=== PATIENT | male | born 1970 | race Caucasian/White ===

== ENCOUNTER 2019-06-16 23:14 | Emergency (ER) | payer SELFPAY ==
[~2019-06-16] VITALS: Ht 170.2 cm; Wt 80.9 kg
[2019-06-16 23:39] LABS: BASOPHILS % (AUTO) 0 % (0-10); EOSINOPHILS # (AUTO) 0.1 10^3/uL (0.0-0.3); EOSINOPHILS % (AUTO) 2 % (0-10); HEMATOCRIT 38 % (40-54); HEMOGLOBIN 12.6 G/DL (13.3-17.7); LYMPHOCYTES # (AUTO) 2.6 X 10^3 (1.0-4.0); LYMPHOCYTES % (AUTO) 38 % (12-44); MEAN CORPUSCULAR HEMOGLOBIN 28 PG (25-34); MEAN CORPUSCULAR HGB CONC 34 G/DL (32-36); MEAN CORPUSCULAR VOLUME 84 FL (80-99); MEAN PLATELET VOLUME 9.5 FL (7.4-10.4); MONOCYTES # (AUTO) 0.5 X 10^3 (0.0-1.0); MONOCYTES % (AUTO) 7 % (0-12); NEUTROPHILS # (AUTO) 3.6 X 10^3 (1.8-7.8); NEUTROPHILS % (AUTO) 52 % (42-75); PLATELET COUNT 209 10^3/uL (130-400); RED CELL DISTRIBUTION WIDTH 13.3 % (10.0-14.5); WHITE BLOOD COUNT 6.9 10^3/uL (4.3-11.0)
[2019-06-16 23:47] LABS: BILIRUBIN,URINE NEGATIVE (NEGATIVE); CLARITY,URINE CLEAR; COLOR,URINE YELLOW; GLUCOSE, URINE (UA) NEGATIVE (NEGATIVE); KETONES,URINE NEGATIVE (NEGATIVE); LEUKOCYTE ESTERASE ,URINE NEGATIVE (NEGATIVE); NITRITE,URINE NEGATIVE (NEGATIVE); PH,URINE 5 (5-9); PROTEIN,URINE 1+ (NEGATIVE)
[2019-06-16 23:51] LABS: ALANINE AMINOTRANSFERASE 13 U/L (0-55); ALBUMIN 3.8 GM/DL (3.2-4.5); ALKALINE PHOSPHATASE 63 U/L (40-136); BILIRUBIN,TOTAL 0.1 MG/DL (0.1-1.0); BUN/CREATININE RATIO 21; CALCIUM 8.5 MG/DL (8.5-10.1); CARBON DIOXIDE 18 MMOL/L (21-32); CHLORIDE 116 MMOL/L (98-107); CREATININE SERUM 0.78 MG/DL (0.60-1.30); GFR ESTIMATED > 60; GLUCOSE 70 MG/DL (70-105); MAGNESIUM 1.9 MG/DL (1.6-2.4); POTASSIUM 3.2 MMOL/L (3.6-5.0); SODIUM 147 MMOL/L (135-145); TOTAL PROTEIN 6.3 GM/DL (6.4-8.2)
[2019-06-16 23:59] LABS: BACTERIA,URINE NEGATIVE /HPF; SQUAMOUS EPITHELIAL CELL,UR 0-2 /HPF
[2019-06-17 00:01] LABS: PROTHROMBIN TIME PATIENT 13.1 SEC (12.2-14.7)
[2019-06-17 00:12] LABS: TSH (THYROID ANALYZER) 0.92 UIU/ML (0.35-4.94)
[2019-06-17 00:13] LABS: AMPHETAMINE SCREEN, URINE NEGATIVE (NEGATIVE); BARBITURATE SCREEN URINE NEGATIVE (NEGATIVE); BENZODIAZEPINES SCREEN URINE NEGATIVE (NEGATIVE); CANNABINOID SCREEN, URINE NEGATIVE (NEGATIVE); COCAINE SCREEN URINE NEGATIVE (NEGATIVE); METHADONE STAT NEGATIVE (NEGATIVE); METHAMPHETAMINE SCREEN URINE S NEGATIVE (NEGATIVE); OPIATE SCREEN URINE NEGATIVE (NEGATIVE); OXYCODONE STAT NEGATIVE (NEGATIVE); PROPOXYPHENE STAT NEGATIVE (NEGATIVE); TRICYCLIC ANTIDEPRESSANTS SCRE NEGATIVE (NEGATIVE)
[2019-06-17] MEDS ORDERED: IOHEXOL 350 MG/ML 100 ML (OMNIPAQUE 350) VIAL IV ONE (00:30)
[2019-06-17] MEDS ORDERED: KCL 10 MEQ TAB (MICRO K) PO ONE (00:30)
[2019-06-17] MEDS ORDERED: NS 100 ML (IVPB) BAG IV ONE (00:30)
--- NOTE | 2019-06-17 00:30 | NUR ---
IV NS BOLUS INITIATED BY [facility] DISPLAY DEPARTMENT MANAGER, COMPLETE (1000ML INTAKE).
[2019-06-17] MEDS ORDERED: HYDR-700 PO (01:25)
--- NOTE | 2019-06-17 01:25 | ED General ---
General Chief Complaint: Psych/Social Disorder Stated Complaint: SOA Nursing Triage Note: Pt to room #3 via [facility] cart from home with c/o anxiety. Engineering Clerk ems accessed 20g IV to lt a/c and initiated ns fluid bolus. Upon arrival pt reports he has been drinking "vodka straight" throughout the day and into this evening. Pt reports between 2100 - 2200 anxiety began. Lung sounds cta bilat. Resp 22. Denies CP or discomfort. Nursing Sepsis Screen: No Definite Risk Allergies and Home Medications Allergies Coded Allergies: morphine (Verified Allergy, Mild, ITCHING, 06/16/19) Past Wglqgxe-Rqpmfn-Aktvos Hx Patient Social History Alcohol Use: Past History Alcohol Beverage of Choice: Vodka Recreational Drug Use: Yes (Meth. heroin, THC) Smoking Status: Former Smoker Type Used: Smokeless Tobacco Recent Foreign Travel: No Contact w/Someone Who Travel: No Recent Infectious Disease Expo: No Past Medical History Abdominal Respiratory: Yes COPD Cardiac: No Neurological: No Genitourinary: No Gastrointestinal: No Musculoskeletal: No Endocrine: No HEENT: No Cancer: No Psychosocial: Yes Anxiety, Depression Integumentary: No Physical Exam Vital Signs Vital Signs - First Documented 06/16/19 23:14 Temp 36.4 Pulse 73 Resp 22 B/P (MAP) 147/100 (116) Pulse Ox 99 O2 Delivery Room Air Capillary Refill : Less Than 3 Seconds Height, Weight, BMI Height: '" Weight: lbs. oz. kg; 27.00 BMI Method: Progress/Results/Core Measures Suspected Sepsis Recent Fever Within 48 Hours: No Infection Criteria Present: None New/Unexplained Altered Menta: No Sepsis Screen: No Definite Risk SIRS Temperature: Pulse: 73 Respiratory Rate: 22 Laboratory Tests 06/16/19 23:29: White Blood Count 6.9 Blood Pressure 147 /100 Mean: 116 Laboratory Tests 06/16/19 23:29: Creatinine 0.78, INR Comment 1.0, Platelet Count 209, Total Bilirubin 0.1 Results/Orders Lab Results Laboratory Tests Test 06/16/19 23:29 06/16/19 23:41 Range/Units White Blood Count 6.9 4.3-11.0 10^3/uL Red Blood Count 4.46 4.35-5.85 10^6/uL Hemoglobin 12.6 L 13.3-17.7 G/DL Hematocrit 38 L 40-54 % Mean Corpuscular Volume 84 80-99 FL Mean Corpuscular Hemoglobin 28 25-34 PG Mean Corpuscular Hemoglobin Concent 34 32-36 G/DL Red Cell Distribution Width 13.3 10.0-14.5 % Platelet Count 209 130-400 10^3/uL Mean Platelet Volume 9.5 7.4-10.4 FL Neutrophils (%) (Auto) 52 42-75 % Lymphocytes (%) (Auto) 38 12-44 % Monocytes (%) (Auto) 7 0-12 % Eosinophils (%) (Auto) 2 0-10 % Basophils (%) (Auto) 0 0-10 % Neutrophils # (Auto) 3.6 1.8-7.8 X 10^3 Lymphocytes # (Auto) 2.6 1.0-4.0 X 10^3 Monocytes # (Auto) 0.5 0.0-1.0 X 10^3 Eosinophils # (Auto) 0.1 0.0-0.3 10^3/uL Basophils # (Auto) 0.0 0.0-0.1 10^3/uL Prothrombin Time 13.1 12.2-14.7 SEC INR Comment 1.0 0.8-1.4 Activated Partial Thromboplast Time 33 24-35 SEC Sodium Level 147 H 135-145 MMOL/L Potassium Level 3.2 L 3.6-5.0 MMOL/L Chloride Level 116 H 98-107 MMOL/L Carbon Dioxide Level 18 L 21-32 MMOL/L Anion Gap 13 5-14 MMOL/L Blood Urea Nitrogen 16 7-18 MG/DL Creatinine 0.78 0.60-1.30 MG/DL Estimat Glomerular Filtration Rate > 60 BUN/Creatinine Ratio 21 Glucose Level 70 70-105 MG/DL Calcium Level 8.5 8.5-10.1 MG/DL Corrected Calcium 8.7 8.5-10.1 MG/DL Magnesium Level 1.9 1.6-2.4 MG/DL Total Bilirubin 0.1 0.1-1.0 MG/DL Aspartate Amino Transf (AST/SGOT) 16 5-34 U/L Alanine Aminotransferase (ALT/SGPT) 13 0-55 U/L Alkaline Phosphatase 63 40-136 U/L Troponin I < 0.028 <0.028 NG/ML B-Type Natriuretic Peptide 15.8 <100.0 PG/ML Total Protein 6.3 L 6.4-8.2 GM/DL Albumin 3.8 3.2-4.5 GM/DL TSH [place] Testing 0.92 0.35-4.94 UIU/ML Serum Alcohol 153 H <10 MG/DL Urine Color YELLOW Urine Clarity CLEAR Urine pH 5 5-9 Urine Specific [place] 1.025 H 1.016-1.022 Urine Protein 1+ H NEGATIVE Urine Glucose (UA) NEGATIVE NEGATIVE Urine Ketones NEGATIVE NEGATIVE Urine Nitrite NEGATIVE NEGATIVE Urine Bilirubin NEGATIVE NEGATIVE Urine Urobilinogen NORMAL NORMAL MG/DL Urine Leukocyte Esterase NEGATIVE NEGATIVE Urine RBC (Auto) NEGATIVE NEGATIVE Urine RBC NONE /HPF Urine WBC NONE /HPF Urine Squamous Epithelial Cells 0-2 /HPF Urine Crystals NONE /LPF Urine Bacteria NEGATIVE /HPF Urine Casts PRESENT /LPF Urine Hyaline Casts 2-5 H /LPF Urine Mucus LARGE H /LPF Urine Culture Indicated NO Urine Opiates Screen NEGATIVE NEGATIVE Urine Oxycodone Screen NEGATIVE NEGATIVE Urine Methadone Screen NEGATIVE NEGATIVE Urine Propoxyphene Screen NEGATIVE NEGATIVE Urine Barbiturates Screen NEGATIVE NEGATIVE Ur Tricyclic Antidepressants Screen NEGATIVE NEGATIVE Urine Phencyclidine Screen NEGATIVE NEGATIVE Urine Amphetamines Screen NEGATIVE NEGATIVE Urine Methamphetamines Screen NEGATIVE NEGATIVE Urine Benzodiazepines Screen NEGATIVE NEGATIVE Urine Cocaine Screen NEGATIVE NEGATIVE Urine Cannabinoids Screen NEGATIVE NEGATIVE My Orders Orders - JUDIT CASTILLO DO Ed Iv/Invasive Line Start (06/16/19 23:31) Ekg Tracing (06/16/19 23:31) Monitor-Rhythm Ecg Trace Only (06/16/19 23:31) Chest Pa/Lat (2 View) (06/16/19 23:31) Alcohol (06/16/19 23:31) BNP (06/16/19 23:31) Cbc With Automated Diff (06/16/19 23:31) Comprehensive Metabolic Panel (06/16/19 23:31) Drug Screen Stat (Urine) (06/16/19 23:31) Magnesium (06/16/19 23:31) Protime With Inr (06/16/19 23:) Partial Thromboplastin Time (06/16/19 23:31) Thyroid Analyzer (06/16/19 23:31) Ua Culture If Indicated (06/16/19 23:31) Troponin I (06/16/19 23:31) Ct Angio Chest W (06/17/19 00:16) Potassium Chloride (Tablet) (Klor Con Ta (06/17/19 00:30) Iohexol Injection (Omnipaque 350 Mg/Ml 1 (06/17/19 00:30) Ns (Ivpb) (Sodium Chloride 0.9% Ivpb Bag (06/17/19 00:30) Hydroxyzine Cap/Tab (Vistaril) (06/17/19 01:30) Medications Given in ED Current Medications Medications Dose Ordered Sig/Narayan Route Start Time Stop Time Status Last Admin Dose Admin Iohexol 75 ml ONCE ONCE IV 06/17/19 00:30 06/17/19 00:31 DC 06/17/19 00:51 75 ML Potassium Chloride 20 meq ONCE ONCE PO 06/17/19 00:30 06/17/19 00:31 DC 06/17/19 00:32 20 MEQ Sodium Chloride 80 ml ONCE ONCE IV 06/17/19 00:30 06/17/19 00:31 DC 06/17/19 00:51 80 ML Vital Signs/I&O 06/16/19 23:14 Temp 36.4 Pulse 73 Resp 22 B/P (MAP) 147/100 (116) Pulse Ox 99 O2 Delivery Room Air Capillary Refill : Less Than 3 Seconds Blood Pressure Mean: 116 Departure Impression Primary Impression: Anxiety Additional Impressions: Hyperventilation Alcohol intoxication Disposition: 01 HOME, SELF-CARE Condition: Improved Departure-Patient Inst. Patient Instructions: ALCOHOL AND SUBSTANCE ABUSE, Anxiety, Adult (DC), Hyperventilation Add. Discharge Instructions: FOLLOW UP WITH YOUR DR ON TUESDAY FOR FURTHER CARE TAKE YOUR MEDICATIONS PRESCRIBED All discharge instructions reviewed with patient and/or family. Voiced understanding. JUDIT CASTILLO DO Jun 17, 2019 01:24
[2019-06-17] MEDS ORDERED: hydrOXYzine (VISTARIL/ATARAX) 25 MG capsule/tablet PO ONE (01:30)
[2019-06-17 01:42] VITALS: BP 122/69
--- NOTE | 2019-06-17 07:22 | Diagnostic Imaging Report ---
EXAMINATION: CT angiography of the chest. TECHNIQUE: Contrast enhanced thin section helical images were obtained through the chest with intravenous contrast timed for the optimal opacification of the arterial structures per CTA protocol. Post-processing, reconstructions and interpretation of angiographic images of the vessels was performed. 3D MIP reconstructions were performed and reviewed. All CT scans use one or more of the following dose optimizing techniques: automated exposure control, MA and/or KvP adjustment based on a patient size and exam type, or iterative reconstruction. HISTORY: Shortness of breath COMPARISON: None available. FINDINGS: There is a poor contrast bolus limiting evaluation of the subsegmental vessels. Within this limitation no pulmonary embolism is seen. The lungs are clear without edema or pneumonia. No pleural effusion or pneumothorax. No suspicious nodules. Heart size is normal. No pericardial effusion. There is no axillary or supraclavicular lymphadenopathy. There is no mediastinal lymphadenopathy. There are moderate coronary artery calcifications. Limited views of the upper abdomen are unremarkable. There are no suspicious osseus lesions. IMPRESSION: 1. No pulmonary embolism, clear lungs. There is no significant disagreement with the preliminary report. Dictated by: Dictated on workstation # [id number]
--- NOTE | 2019-06-17 08:13 | Diagnostic Imaging Report ---
EXAMINATION: Chest 2 view HISTORY: Shortness of breath FINDINGS: No comparison available. The lungs are clear. No edema. No pneumonia. No pleural effusion. No pneumothorax. Heart is normal in size. IMPRESSION: 1. Clear lungs. Dictated by: Dictated on workstation # [id number]
== END 2019-06-17 01:42 | disposition home or self-care (01) ==
LOC: ER 23:21
DX: F41.9 Anxiety disorder, unspecified (principal); R06.4 Hyperventilation; F10.129 Alcohol abuse with intoxication, unspecified; J44.9 Chronic obstructive pulmonary disease, unspecified; F32.9 Major depressive disorder, single episode, unspecified; Z88.5 Allergy status to narcotic agent; Z87.891 Personal history of nicotine dependence
CPT/HCPCS: 36415; 71046; 71275; 80053; 80306; 80320; 81000; 83735; 83880; 84443; 84484; 85025; 85610; 85730; 93005; 93041